=== PATIENT | female | born 1935 | race Asian ===

== ENCOUNTER 2023-03-23 19:35 | Inpatient (IN) | payer MEDICARE, OTHER ==
[~2023-03-23] VITALS: Ht 167.6 cm; Wt 68.5 kg
[2023-03-23 21:38] LABS: APPEARANCE,URINE CLEAR (CLEAR); BILIRUBIN,URINE NEGATIVE (NEGATIVE); BLOOD, URINE TRACE-INTA Ery/uL (NEGATIVE); COLOR,URINE YELLOW (YELLOW); KETONES,URINE NEGATIVE (NEGATIVE); LEUKOCYTE ESTERASE ,URINE NEGATIVE (NEGATIVE); NITRITE, URINE NEGATIVE (NEGATIVE); PH,URINE 5.5 (5.0-8.0); PROTEIN,URINE NEGATIVE (NEGATIVE); UGLUCOSE NEGATIVE (NEGATIVE); UROBILINOGEN,URINE 0.2 EU/dL (0.2)
[2023-03-23 21:46] LABS: ADD URINE CULTURE NO; BACTERIA,URINE None seen /HPF (None Seen); SQUAMOUS EPITHELIAL CELL,UR 0-2 /HPF (None Seen); WBC,URINE 0-2 /HPF (0-3)
[2023-03-23 21:49] LABS: BASOPHILS % (AUTO) 0.6 % (0.0-2.0); EOSINOPHILS # (AUTO) 0.4 K/uL (0.0-0.7); EOSINOPHILS % (AUTO) 5.9 % (0.0-6.0); HEMATOCRIT 40 % (33-45); HEMOGLOBIN 13.1 g/dL (11.5-14.8); LYMPHOCYTES # (AUTO) 1.6 K/uL (0.8-4.8); LYMPHOCYTES % (AUTO) 24.6 % (20.0-44.0); MEAN CORPUSCULAR HEMOGLOBIN 32 PG (26.0-33.0); MEAN CORPUSCULAR HGB CONC 33 g/dl (31.0-36.0); MEAN CORPUSCULAR VOLUME 97 fL (82-100); MONOCYTES # (AUTO) 0.7 K/uL (0.1-1.30); MONOCYTES % (AUTO) 10.4 % (2.0-12.0); NEUTROPHILS # (AUTO) 3.8 K/uL (1.8-8.9); NEUTROPHILS % (AUTO) 58.5 % (43.0-81.0); PLATELET COUNT (AUTO) 294 K/uL (150-450); RED BLOOD CELL COUNT(AUTO) 4.12 MIL/uL (4.0-5.2); RED CELL DISTRIBUTION WIDTH 13.6 % (11.5-15.0); WHITE BLOOD COUNT (AUTO) 6.5 K/uL (4.3-11.0)
[2023-03-23 22:11] LABS: AMPHETAMINE, URINE NEGATIVE (NEGATIVE); BARBITURATE, URINE NEGATIVE (NEGATIVE); BENZODIAZEPINE, URINE NEGATIVE (NEGATIVE); CANNABINOID, URINE NEGATIVE (NEGATIVE); COCCAINE, URINE NEGATIVE (NEGATIVE); OPIATE, URINE NEGATIVE (NEGATIVE); PHENCYCLIDINE SCREEN,URINE NEGATIVE (NEGATIVE)
[2023-03-23 22:15] LABS: ALANINE AMINOTRANSFERASE 21 U/L (12-78); ALBUMIN 3.5 g/dL (3.4-5.0); ALCOHOL, BLOOD < 3 mg/dL (0-10); ALKALINE PHOSPHATASE 84 U/L (46-116); ASPARTATE AMINOTRANSFERASE 23 U/L (15-37); BILIRUBIN,DIRECT 0.1 mg/dL (0.0-0.2); BILIRUBIN,TOTAL 0.6 mg/dL (0.2-1.0); CALCIUM, SERUM 9.5 mg/dL (8.5-10.1); CARBON DIOXIDE 25 mmol/L (21-32); CHLORIDE 107 mmol/L (98-107); GLUCOSE 84 mg/dL (74-106); POTASSIUM 4.2 mmol/L (3.5-5.1); SODIUM SERUM 139 mmol/L (136-145); TOTAL PROTEIN, SERUM 7.8 g/dL (6.4-8.2); UREA NITROGEN, BLOOD 20 mg/dL (7-18)
[2023-03-23 22:16] LABS: ACETAMINOPHEN <10 ug/ml (10-30); SALICYLATE 0.7 mg/dL (2.8-20.0)
[2023-03-23] MEDS ORDERED: OLANZAPINE 5 MG TABLET ONE (23:10)
[2023-03-23] MEDS ORDERED: OLANZAPINE 5 MG TABLET PO ONE (23:30)
[2023-03-23] MEDS ORDERED: OLANZAPINE 10 MG VIAL IM ONE (23:30)
[2023-03-24] MEDS ORDERED: MIRT45TA83 PO (01:07)
[2023-03-24] MEDS ORDERED: HYDR25CA PO (01:08)
[2023-03-24] MEDS ORDERED: BUDE10.2 PO (01:10)
[2023-03-24] MEDS ORDERED: [UNRECOGNIZED DRUG - CODE] PO (01:12)
[2023-03-24] MEDS ORDERED: FLUT16SP BNOSTRILS (01:13)
[2023-03-24] MEDS ORDERED: DICL100G34 TP (01:14)
[2023-03-24] MEDS ORDERED: PROP1DRO4 OP (01:16)
[2023-03-24] MEDS ORDERED: FERR325T23 PO (01:17)
[2023-03-24] MEDS ORDERED: FOLI5VIA2 PO (01:19)
[2023-03-24] MEDS ORDERED: MULT-754 PO (01:19)
[2023-03-24] MEDS ORDERED: THIA100T70 PO (01:20)
[2023-03-24] MEDS ORDERED: CHOL200013 PO (01:22)
[2023-03-24] MEDS ORDERED: DOCU100C36 PO (01:23)
[2023-03-24] MEDS ORDERED: LEVO137T2 PO (01:24)
[2023-03-24] MEDS ORDERED: PANT40TA49 PO (01:26)
[2023-03-24] MEDS ORDERED: GABA600T12 PO (01:26)
[2023-03-24] MEDS ORDERED: DULO60CA64 PO (01:27)
[2023-03-24] MEDS ORDERED: ALBU8.5H8 INH (01:29)
[2023-03-24] MEDS ORDERED: ALBUTEROL FS 2.5 MG/3 ML VIAL.NEB IH PRN (02:00)
[2023-03-24] MEDS ORDERED: MAGNESIUM HYDROXIDE 30 ML UDC PO PRN (03:30)
[2023-03-24] MEDS ORDERED: BLOOD SUGAR DIAGNOSTIC 1 EACH STRIP IN ONE (03:30)
[2023-03-24] MEDS ORDERED: TEMAZEPAM 7.5 MG CAPSULE PO PRN (03:30)
[2023-03-24] MEDS ORDERED: MAG HYDROX/AL HYDROX/SIMETH 30 ML UDC PO PRN (03:30)
[2023-03-24] MEDS: BUDESONIDE RESPULE INH 0.5 MG/2 ML AMPUL.NEB IH SCH ×2 (07:05→15:00)
[2023-03-24] MEDS: ALBUTEROL FS 2.5 MG/3 ML VIAL.NEB NEB SCH ×3 (07:35→19:30)
[2023-03-24 08:00] VITALS: BP 133/77; TEMP 97.6; O2SAT 93
[2023-03-24] MEDS: PANTOPRAZOLE 40 MG TABLET.DR PO SCH (08:46)
[2023-03-24] MEDS: GABAPENTIN 300 MG CAPSULE PO SCH ×3 (08:46→17:00)
[2023-03-24] MEDS: CHOLECALCIFEROL 1,000 UNIT TABLET (VIT D3) PO SCH (08:46)
[2023-03-24] MEDS: CALCIUM CARB 600MG /VIT D 1 EACH TABLET PO SCH ×2 (08:46→17:00)
[2023-03-24] MEDS: MULTIVITAMINS,THERAGRAN 1 UDTAB TABLET PO SCH (08:46)
[2023-03-24] MEDS: THIAMINE HCL 100 MG TABLET PO SCH (08:46)
[2023-03-24] MEDS: FERROUS SULFATE (325 MG) 325 MG/TAB TABLET PO SCH ×2 (08:46→17:00)
[2023-03-24] MEDS: POLYVINYL ALCOHOL 15 ML BOTTLE OP SCH ×2 (08:48→17:00)
[2023-03-24] MEDS: FLUTICASONE PROPIONATE 16 GM BOTTLE NS SCH ×2 (08:48→21:00)
[2023-03-24] MEDS: LEVOTHYROXINE SODIUM 137 MCG TABLET PO SCH (08:49)
[2023-03-24] MEDS ORDERED: DICLOFENAC TOPICAL 100 GM TUBE TP SCH (09:00)
[2023-03-24] MEDS: DULOXETINE HCL 30 MG CAPSULE.DR PO SCH (11:30)
[2023-03-24] MEDS: DIVALPROEX SODIUM 125 MG TABLET.DR PO SCH ×2 (13:00→17:00)
[2023-03-24 16:00] VITALS: BP 133/87; TEMP 97.9; O2SAT 94
[2023-03-24 20:00] VITALS: BP 112/97; TEMP 97.9; O2SAT 95
[2023-03-25] MEDS: BUDESONIDE RESPULE INH 0.5 MG/2 ML AMPUL.NEB IH SCH ×2 (07:05→15:00)
[2023-03-25] MEDS: PANTOPRAZOLE 40 MG TABLET.DR PO SCH (07:30)
[2023-03-25] MEDS: ALBUTEROL FS 2.5 MG/3 ML VIAL.NEB NEB SCH ×3 (07:35→22:45)
[2023-03-25 08:00] VITALS: BP 146/63; TEMP 97.8; O2SAT 96
[2023-03-25] MEDS: GABAPENTIN 300 MG CAPSULE PO SCH ×3 (08:34→17:13)
[2023-03-25] MEDS: FERROUS SULFATE (325 MG) 325 MG/TAB TABLET PO SCH ×2 (08:34→17:14)
[2023-03-25] MEDS: DIVALPROEX SODIUM 125 MG TABLET.DR PO SCH ×3 (08:34→17:14)
[2023-03-25] MEDS: DULOXETINE HCL 30 MG CAPSULE.DR PO SCH (08:34)
[2023-03-25] MEDS: CALCIUM CARB 600MG /VIT D 1 EACH TABLET PO SCH ×2 (08:35→17:14)
[2023-03-25] MEDS: LEVOTHYROXINE SODIUM 137 MCG TABLET PO SCH (08:35)
[2023-03-25] MEDS: THIAMINE HCL 100 MG TABLET PO SCH (09:00)
[2023-03-25] MEDS: MULTIVITAMINS,THERAGRAN 1 UDTAB TABLET PO SCH (09:00)
[2023-03-25] MEDS: CHOLECALCIFEROL 1,000 UNIT TABLET (VIT D3) PO SCH (09:00)
[2023-03-25] MEDS: POLYVINYL ALCOHOL 15 ML BOTTLE OP SCH ×2 (12:02→17:13)
[2023-03-25] MEDS: FLUTICASONE PROPIONATE 16 GM BOTTLE NS SCH ×2 (12:02→21:03)
[2023-03-25 16:00] VITALS: BP 137/69; TEMP 98.6; O2SAT 95
[2023-03-25] MEDS: ACETAMINOPHEN 325 MG TABLET PO PRN (17:13)
[2023-03-25] MEDS: IBUPROFEN 400 MG TABLET PO SCH (18:35)
[2023-03-25 20:00] VITALS: BP 140/72; TEMP 98.1; O2SAT 97
[2023-03-25 20:40] VITALS: O2SAT 95
[2023-03-25 20:52] VITALS: O2SAT 99
[2023-03-26] VITALS (9 sets, daily range): BP systolic 113–145; BP diastolic 56–64; TEMP 97.7–97.9; O2SAT 95–100
[2023-03-26] MEDS: IBUPROFEN 400 MG TABLET PO SCH ×4 (01:52→17:37)
[2023-03-26] MEDS: ALBUTEROL FS 2.5 MG/3 ML VIAL.NEB NEB SCH ×4 (02:38→20:05)
[2023-03-26] MEDS: PANTOPRAZOLE 40 MG TABLET.DR PO SCH (07:52)
[2023-03-26] MEDS: LEVOTHYROXINE SODIUM 137 MCG TABLET PO SCH (07:52)
[2023-03-26] MEDS: BUDESONIDE RESPULE INH 0.5 MG/2 ML AMPUL.NEB IH SCH ×2 (08:15→15:00)
[2023-03-26] MEDS: DIVALPROEX SODIUM 125 MG TABLET.DR PO SCH ×3 (08:35→17:08)
[2023-03-26] MEDS: CALCIUM CARB 600MG /VIT D 1 EACH TABLET PO SCH ×2 (08:36→17:08)
[2023-03-26] MEDS: FERROUS SULFATE (325 MG) 325 MG/TAB TABLET PO SCH ×4 (08:36→17:08)
[2023-03-26] MEDS: DULOXETINE HCL 30 MG CAPSULE.DR PO SCH (08:36)
[2023-03-26] MEDS: MULTIVITAMINS,THERAGRAN 1 UDTAB TABLET PO SCH (08:36)
[2023-03-26] MEDS: CHOLECALCIFEROL 1,000 UNIT TABLET (VIT D3) PO SCH (08:36)
[2023-03-26] MEDS: GABAPENTIN 300 MG CAPSULE PO SCH ×3 (08:36→17:08)
[2023-03-26] MEDS: THIAMINE HCL 100 MG TABLET PO SCH (08:37)
[2023-03-26] MEDS: FLUTICASONE PROPIONATE 16 GM BOTTLE NS SCH ×2 (08:40→21:11)
[2023-03-26] MEDS: POLYVINYL ALCOHOL 15 ML BOTTLE OP SCH ×2 (08:41→17:09)
[2023-03-27] MEDS: IBUPROFEN 400 MG TABLET PO SCH ×4 (01:24→17:44)
[2023-03-27] MEDS: ALBUTEROL FS 2.5 MG/3 ML VIAL.NEB NEB SCH ×4 (01:30→20:45)
[2023-03-27] MEDS: LEVOTHYROXINE SODIUM 137 MCG TABLET PO SCH (07:53)
[2023-03-27] MEDS: PANTOPRAZOLE 40 MG TABLET.DR PO SCH (07:54)
[2023-03-27 08:00] VITALS: BP 136/73; TEMP 98.6; O2SAT 96
[2023-03-27] MEDS: GABAPENTIN 300 MG CAPSULE PO SCH ×3 (08:01→17:03)
[2023-03-27] MEDS: CALCIUM CARB 600MG /VIT D 1 EACH TABLET PO SCH ×2 (08:01→17:03)
[2023-03-27] MEDS: DIVALPROEX SODIUM 125 MG TABLET.DR PO SCH ×3 (08:01→17:03)
[2023-03-27] MEDS: DULOXETINE HCL 30 MG CAPSULE.DR PO SCH (08:01)
[2023-03-27] MEDS: FERROUS SULFATE (325 MG) 325 MG/TAB TABLET PO SCH ×2 (08:01→16:40)
[2023-03-27] MEDS: CHOLECALCIFEROL 1,000 UNIT TABLET (VIT D3) PO SCH (08:01)
[2023-03-27 08:20] VITALS: O2SAT 97
[2023-03-27 08:30] VITALS: O2SAT 99
[2023-03-27] MEDS: BUDESONIDE RESPULE INH 0.5 MG/2 ML AMPUL.NEB IH SCH ×2 (08:38→14:36)
[2023-03-27] MEDS: MULTIVITAMINS,THERAGRAN 1 UDTAB TABLET PO SCH (08:52)
[2023-03-27] MEDS: ACETAMINOPHEN 325 MG TABLET PO PRN ×2 (08:52→15:25)
[2023-03-27] MEDS: THIAMINE HCL 100 MG TABLET PO SCH (08:53)
[2023-03-27] MEDS: POLYVINYL ALCOHOL 15 ML BOTTLE OP SCH ×2 (08:54→17:03)
[2023-03-27] MEDS: FLUTICASONE PROPIONATE 16 GM BOTTLE NS SCH ×2 (08:54→21:17)
[2023-03-27] MEDS: MINERAL OIL/PETROL OINT 396 GM JAR TP SCH (08:55)
[2023-03-27] MEDS: LORAZEPAM 0.5 MG TABLET PO PRN (13:55)
[2023-03-27 16:00] VITALS: BP 143/63; TEMP 98.4; O2SAT 95
[2023-03-27 20:06] VITALS: BP 140/66; TEMP 98; O2SAT 97
[2023-03-28] VITALS (7 sets, daily range): BP systolic 132–145; BP diastolic 61–72; TEMP 97.8–97.9; O2SAT 94–99
[2023-03-28] MEDS: IBUPROFEN 400 MG TABLET PO SCH ×4 (00:27→17:43)
[2023-03-28] MEDS: ALBUTEROL FS 2.5 MG/3 ML VIAL.NEB NEB SCH ×4 (01:30→21:39)
[2023-03-28] MEDS: BUDESONIDE RESPULE INH 0.5 MG/2 ML AMPUL.NEB IH SCH ×2 (08:38→14:10)
[2023-03-28] MEDS: CHOLECALCIFEROL 1,000 UNIT TABLET (VIT D3) PO SCH (09:07)
[2023-03-28] MEDS: PANTOPRAZOLE 40 MG TABLET.DR PO SCH (09:07)
[2023-03-28] MEDS: MULTIVITAMINS,THERAGRAN 1 UDTAB TABLET PO SCH (09:07)
[2023-03-28] MEDS: CALCIUM CARB 600MG /VIT D 1 EACH TABLET PO SCH ×2 (09:07→16:23)
[2023-03-28] MEDS: THIAMINE HCL 100 MG TABLET PO SCH (09:07)
[2023-03-28] MEDS: GABAPENTIN 300 MG CAPSULE PO SCH ×3 (09:07→16:23)
[2023-03-28] MEDS: FLUTICASONE PROPIONATE 16 GM BOTTLE NS SCH ×2 (09:08→21:17)
[2023-03-28] MEDS: LORAZEPAM 0.5 MG TABLET PO PRN (09:08)
[2023-03-28] MEDS: POLYVINYL ALCOHOL 15 ML BOTTLE OP SCH ×2 (09:08→16:24)
[2023-03-28] MEDS: DIVALPROEX SODIUM 125 MG TABLET.DR PO SCH ×3 (09:08→16:23)
[2023-03-28] MEDS: LEVOTHYROXINE SODIUM 137 MCG TABLET PO SCH (09:08)
[2023-03-28] MEDS: FERROUS SULFATE (325 MG) 325 MG/TAB TABLET PO SCH ×2 (09:08→16:23)
[2023-03-28] MEDS: MINERAL OIL/PETROL OINT 396 GM JAR TP SCH (09:09)
[2023-03-28] MEDS: DULOXETINE HCL 20 MG CAPSULE.DR PO SCH (09:09)
[2023-03-28] MEDS: ACETAMINOPHEN 325 MG TABLET PO PRN ×2 (09:13→21:09)
[2023-03-28] MEDS: DOCUSATE SODIUM 100 MG CAPSULE PO PRN (16:23)
[2023-03-29] VITALS (8 sets, daily range): BP systolic 116–127; BP diastolic 59–62; TEMP 97.9–98.6; O2SAT 96–100
[2023-03-29] MEDS: IBUPROFEN 400 MG TABLET PO SCH ×4 (00:44→18:38)
[2023-03-29] MEDS: ALBUTEROL FS 2.5 MG/3 ML VIAL.NEB NEB SCH ×4 (01:30→20:25)
[2023-03-29] MEDS: BUDESONIDE RESPULE INH 0.5 MG/2 ML AMPUL.NEB IH SCH ×2 (08:30→14:08)
[2023-03-29] MEDS: GABAPENTIN 300 MG CAPSULE PO SCH ×4 (08:37→17:17)
[2023-03-29] MEDS: THIAMINE HCL 100 MG TABLET PO SCH (08:38)
[2023-03-29] MEDS: FERROUS SULFATE (325 MG) 325 MG/TAB TABLET PO SCH ×2 (08:38→17:18)
[2023-03-29] MEDS: DOCUSATE SODIUM 100 MG CAPSULE PO PRN (08:38)
[2023-03-29] MEDS: CHOLECALCIFEROL 1,000 UNIT TABLET (VIT D3) PO SCH (08:38)
[2023-03-29] MEDS: CALCIUM CARB 600MG /VIT D 1 EACH TABLET PO SCH ×2 (08:38→17:18)
[2023-03-29] MEDS: MULTIVITAMINS,THERAGRAN 1 UDTAB TABLET PO SCH (08:38)
[2023-03-29] MEDS: PANTOPRAZOLE 40 MG TABLET.DR PO SCH (08:38)
[2023-03-29] MEDS: FLUTICASONE PROPIONATE 16 GM BOTTLE NS SCH ×2 (08:41→20:33)
[2023-03-29] MEDS: POLYVINYL ALCOHOL 15 ML BOTTLE OP SCH ×2 (08:42→17:17)
[2023-03-29] MEDS: LEVOTHYROXINE SODIUM 137 MCG TABLET PO SCH (08:46)
[2023-03-29] MEDS: DIVALPROEX SODIUM 125 MG TABLET.DR PO SCH ×4 (08:47→17:19)
[2023-03-29] MEDS: DULOXETINE HCL 20 MG CAPSULE.DR PO SCH (08:47)
[2023-03-29] MEDS: MINERAL OIL/PETROL OINT 396 GM JAR TP SCH (08:48)
[2023-03-29] MEDS: ACETAMINOPHEN 325 MG TABLET PO PRN (09:07)
[2023-03-29] MEDS: LIDOCAINE 5% (PATCH) 1 EA PATCH TP SCH (11:30)
[2023-03-30] MEDS: IBUPROFEN 400 MG TABLET PO SCH ×5 (00:36→23:41)
[2023-03-30] MEDS: ALBUTEROL FS 2.5 MG/3 ML VIAL.NEB NEB SCH ×4 (01:30→20:53)
[2023-03-30] MEDS: BUDESONIDE RESPULE INH 0.5 MG/2 ML AMPUL.NEB IH SCH ×2 (07:05→14:17)
[2023-03-30 08:00] VITALS: BP 151/66; TEMP 97.6; O2SAT 98
[2023-03-30] MEDS: CHOLECALCIFEROL 1,000 UNIT TABLET (VIT D3) PO SCH (08:35)
[2023-03-30] MEDS: LEVOTHYROXINE SODIUM 137 MCG TABLET PO SCH (08:35)
[2023-03-30] MEDS: DIVALPROEX SODIUM 125 MG TABLET.DR PO SCH ×3 (08:36→17:22)
[2023-03-30] MEDS: DULOXETINE HCL 20 MG CAPSULE.DR PO SCH (08:37)
[2023-03-30] MEDS: PANTOPRAZOLE 40 MG TABLET.DR PO SCH (08:38)
[2023-03-30] MEDS: GABAPENTIN 300 MG CAPSULE PO SCH ×3 (08:38→17:21)
[2023-03-30] MEDS: THIAMINE HCL 100 MG TABLET PO SCH (08:39)
[2023-03-30] MEDS: ACETAMINOPHEN 325 MG TABLET PO PRN (08:40)
[2023-03-30] MEDS: CALCIUM CARB 600MG /VIT D 1 EACH TABLET PO SCH ×2 (08:41→17:22)
[2023-03-30] MEDS: POLYVINYL ALCOHOL 15 ML BOTTLE OP SCH ×2 (08:41→17:21)
[2023-03-30] MEDS: MULTIVITAMINS,THERAGRAN 1 UDTAB TABLET PO SCH (08:41)
[2023-03-30] MEDS: FERROUS SULFATE (325 MG) 325 MG/TAB TABLET PO SCH ×2 (08:41→17:22)
[2023-03-30] MEDS: MINERAL OIL/PETROL OINT 396 GM JAR TP SCH (08:42)
[2023-03-30] MEDS: FLUTICASONE PROPIONATE 16 GM BOTTLE NS SCH ×2 (08:44→21:33)
[2023-03-30] MEDS: LIDOCAINE 5% (PATCH) 1 EA PATCH TP SCH (12:47)
[2023-03-30 15:12] LABS: BASOPHILS # (AUTO) 0.1 K/uL (0.0-0.2); BASOPHILS % (AUTO) 0.8 % (0.0-2.0); EOSINOPHILS # (AUTO) 0.5 K/uL (0.0-0.7); EOSINOPHILS % (AUTO) 7.5 % (0.0-6.0); HEMATOCRIT 39 % (33-45); HEMOGLOBIN 12.9 g/dL (11.5-14.8); LYMPHOCYTES # (AUTO) 1.8 K/uL (0.8-4.8); LYMPHOCYTES % (AUTO) 26.5 % (20.0-44.0); MEAN CORPUSCULAR HEMOGLOBIN 32 PG (26.0-33.0); MEAN CORPUSCULAR HGB CONC 33 g/dl (31.0-36.0); MEAN CORPUSCULAR VOLUME 97 fL (82-100); MONOCYTES # (AUTO) 0.6 K/uL (0.1-1.30); MONOCYTES % (AUTO) 9.6 % (2.0-12.0); NEUTROPHILS # (AUTO) 3.7 K/uL (1.8-8.9); NEUTROPHILS % (AUTO) 55.6 % (43.0-81.0); PLATELET COUNT (AUTO) 240 K/uL (150-450); RED BLOOD CELL COUNT(AUTO) 4.07 MIL/uL (4.0-5.2); RED CELL DISTRIBUTION WIDTH 13.5 % (11.5-15.0); WHITE BLOOD COUNT (AUTO) 6.7 K/uL (4.3-11.0)
[2023-03-30 15:31] LABS: ALBUMIN 3.5 g/dL (3.4-5.0); BILIRUBIN,TOTAL 0.4 mg/dL (0.2-1.0); CALCIUM, SERUM 9.5 mg/dL (8.5-10.1); CREATININE 1.1 mg/dL (0.6-1.3); POTASSIUM 4.6 mmol/L (3.5-5.1); TOTAL PROTEIN, SERUM 7.8 g/dL (6.4-8.2)
[2023-03-30 16:00] VITALS: BP 147/66; TEMP 97.9; O2SAT 96
[2023-03-30 20:53] VITALS: O2SAT 97
[2023-03-30 21:06] VITALS: O2SAT 100
[2023-03-31] MEDS: LORAZEPAM 0.5 MG TABLET PO PRN (01:13)
[2023-03-31] MEDS: ALBUTEROL FS 2.5 MG/3 ML VIAL.NEB NEB SCH ×2 (01:30→07:35)
[2023-03-31] MEDS: IBUPROFEN 400 MG TABLET PO SCH ×3 (06:33→18:45)
[2023-03-31] MEDS: BUDESONIDE RESPULE INH 0.5 MG/2 ML AMPUL.NEB IH SCH ×2 (07:05→15:00)
[2023-03-31 08:00] VITALS: BP 134/79; TEMP 97.7; O2SAT 94
[2023-03-31] MEDS: THIAMINE HCL 100 MG TABLET PO SCH (08:10)
[2023-03-31] MEDS: DIVALPROEX SODIUM 125 MG TABLET.DR PO SCH ×3 (08:10→16:10)
[2023-03-31] MEDS: CHOLECALCIFEROL 1,000 UNIT TABLET (VIT D3) PO SCH (08:11)
[2023-03-31] MEDS: CALCIUM CARB 600MG /VIT D 1 EACH TABLET PO SCH ×2 (08:11→16:10)
[2023-03-31] MEDS: MULTIVITAMINS,THERAGRAN 1 UDTAB TABLET PO SCH (08:11)
[2023-03-31] MEDS: LEVOTHYROXINE SODIUM 137 MCG TABLET PO SCH (08:11)
[2023-03-31] MEDS: PANTOPRAZOLE 40 MG TABLET.DR PO SCH (08:11)
[2023-03-31] MEDS: FERROUS SULFATE (325 MG) 325 MG/TAB TABLET PO SCH ×2 (08:11→16:10)
[2023-03-31] MEDS: GABAPENTIN 300 MG CAPSULE PO SCH ×3 (08:11→16:10)
[2023-03-31] MEDS: DULOXETINE HCL 20 MG CAPSULE.DR PO SCH (08:13)
[2023-03-31] MEDS: FLUTICASONE PROPIONATE 16 GM BOTTLE NS SCH ×2 (08:33→21:15)
[2023-03-31] MEDS: POLYVINYL ALCOHOL 15 ML BOTTLE OP SCH ×2 (08:33→16:11)
[2023-03-31] MEDS: MINERAL OIL/PETROL OINT 396 GM JAR TP SCH (09:32)
[2023-03-31] MEDS: LIDOCAINE 5% (PATCH) 1 EA PATCH TP SCH (11:48)
[2023-03-31 16:00] VITALS: BP 128/71; TEMP 98.2; O2SAT 94
[2023-03-31 20:00] VITALS: BP 110/77; TEMP 98.4; O2SAT 97
[2023-04-01] MEDS: IBUPROFEN 400 MG TABLET PO SCH ×4 (00:25→18:44)
[2023-04-01 08:00] VITALS: BP 155/63; TEMP 97.4; O2SAT 98
[2023-04-01] MEDS: PANTOPRAZOLE 40 MG TABLET.DR PO SCH (08:03)
[2023-04-01] MEDS: LEVOTHYROXINE SODIUM 137 MCG TABLET PO SCH (08:03)
[2023-04-01 08:25] VITALS: O2SAT 95
[2023-04-01 08:35] VITALS: O2SAT 99
[2023-04-01] MEDS: BUDESONIDE RESPULE INH 0.5 MG/2 ML AMPUL.NEB IH SCH ×2 (08:39→17:18)
[2023-04-01] MEDS: GABAPENTIN 300 MG CAPSULE PO SCH ×3 (08:54→16:21)
[2023-04-01] MEDS: DIVALPROEX SODIUM 125 MG TABLET.DR PO SCH ×3 (08:54→16:21)
[2023-04-01] MEDS: CHOLECALCIFEROL 1,000 UNIT TABLET (VIT D3) PO SCH (08:54)
[2023-04-01] MEDS: MULTIVITAMINS,THERAGRAN 1 UDTAB TABLET PO SCH (08:54)
[2023-04-01] MEDS: CALCIUM CARB 600MG /VIT D 1 EACH TABLET PO SCH ×2 (08:54→16:21)
[2023-04-01] MEDS: THIAMINE HCL 100 MG TABLET PO SCH (08:54)
[2023-04-01] MEDS: FERROUS SULFATE (325 MG) 325 MG/TAB TABLET PO SCH ×2 (08:54→16:21)
[2023-04-01] MEDS: DULOXETINE HCL 20 MG CAPSULE.DR PO SCH (08:55)
[2023-04-01] MEDS: FLUTICASONE PROPIONATE 16 GM BOTTLE NS SCH ×2 (08:55→21:17)
[2023-04-01] MEDS: POLYVINYL ALCOHOL 15 ML BOTTLE OP SCH ×2 (08:55→16:22)
[2023-04-01] MEDS: LIDOCAINE 5% (PATCH) 1 EA PATCH TP SCH (11:14)
[2023-04-01] MEDS: MINERAL OIL/PETROL OINT 396 GM JAR TP SCH (11:16)
[2023-04-01 15:45] VITALS: O2SAT 97
[2023-04-01 20:00] VITALS: BP 157/68; TEMP 97.6; O2SAT 99
[2023-04-02] MEDS: IBUPROFEN 400 MG TABLET PO SCH ×4 (00:30→17:59)
[2023-04-02] MEDS: BUDESONIDE RESPULE INH 0.5 MG/2 ML AMPUL.NEB IH SCH ×2 (07:05→15:00)
[2023-04-02 08:00] VITALS: BP 119/86; TEMP 97.9; O2SAT 94
[2023-04-02] MEDS: THIAMINE HCL 100 MG TABLET PO SCH (08:42)
[2023-04-02] MEDS: GABAPENTIN 300 MG CAPSULE PO SCH ×3 (08:42→16:06)
[2023-04-02] MEDS: FERROUS SULFATE (325 MG) 325 MG/TAB TABLET PO SCH ×3 (08:42→16:06)
[2023-04-02] MEDS: LEVOTHYROXINE SODIUM 137 MCG TABLET PO SCH (08:43)
[2023-04-02] MEDS: MULTIVITAMINS,THERAGRAN 1 UDTAB TABLET PO SCH (08:43)
[2023-04-02] MEDS: PANTOPRAZOLE 40 MG TABLET.DR PO SCH (08:43)
[2023-04-02] MEDS: CALCIUM CARB 600MG /VIT D 1 EACH TABLET PO SCH ×2 (08:43→16:06)
[2023-04-02] MEDS: CHOLECALCIFEROL 1,000 UNIT TABLET (VIT D3) PO SCH (08:43)
[2023-04-02] MEDS: DIVALPROEX SODIUM 125 MG TABLET.DR PO SCH ×3 (08:43→16:06)
[2023-04-02] MEDS: FLUTICASONE PROPIONATE 16 GM BOTTLE NS SCH ×2 (08:45→20:29)
[2023-04-02] MEDS: DULOXETINE HCL 20 MG CAPSULE.DR PO SCH (08:45)
[2023-04-02] MEDS: POLYVINYL ALCOHOL 15 ML BOTTLE OP SCH ×2 (08:45→16:06)
[2023-04-02] MEDS: MINERAL OIL/PETROL OINT 396 GM JAR TP SCH (11:17)
[2023-04-02] MEDS: LIDOCAINE 5% (PATCH) 1 EA PATCH TP SCH (11:18)
[2023-04-02 16:00] VITALS: BP 127/58; TEMP 97.6; O2SAT 97
[2023-04-02 21:08] VITALS: BP 147/74; TEMP 97.8; O2SAT 96
[2023-04-03] MEDS: IBUPROFEN 400 MG TABLET PO SCH ×3 (00:55→12:30)
[2023-04-03] MEDS: BUDESONIDE RESPULE INH 0.5 MG/2 ML AMPUL.NEB IH SCH ×2 (07:05→08:31)
[2023-04-03] MEDS: PANTOPRAZOLE 40 MG TABLET.DR PO SCH (07:55)
[2023-04-03] MEDS: LEVOTHYROXINE SODIUM 137 MCG TABLET PO SCH (07:55)
[2023-04-03 08:00] VITALS: BP 132/65; TEMP 98.7; O2SAT 94
[2023-04-03 08:18] VITALS: O2SAT 96
[2023-04-03] MEDS: LIDOCAINE 5% (PATCH) 1 EA PATCH TP SCH (08:27)
[2023-04-03] MEDS: MULTIVITAMINS,THERAGRAN 1 UDTAB TABLET PO SCH ×2 (08:27→09:00)
[2023-04-03] MEDS: GABAPENTIN 300 MG CAPSULE PO SCH ×2 (08:28→13:00)
[2023-04-03] MEDS: FERROUS SULFATE (325 MG) 325 MG/TAB TABLET PO SCH ×2 (08:28→09:00)
[2023-04-03] MEDS: DIVALPROEX SODIUM 125 MG TABLET.DR PO SCH ×2 (08:28→13:00)
[2023-04-03] MEDS: CALCIUM CARB 600MG /VIT D 1 EACH TABLET PO SCH ×2 (08:28→09:00)
[2023-04-03] MEDS: CHOLECALCIFEROL 1,000 UNIT TABLET (VIT D3) PO SCH ×2 (08:29→09:00)
[2023-04-03] MEDS: MINERAL OIL/PETROL OINT 396 GM JAR TP SCH (08:29)
[2023-04-03 08:32] VITALS: O2SAT 100
[2023-04-03] MEDS: POLYVINYL ALCOHOL 15 ML BOTTLE OP SCH (09:00)
[2023-04-03] MEDS: DULOXETINE HCL 20 MG CAPSULE.DR PO SCH (09:00)
[2023-04-03] MEDS: FLUTICASONE PROPIONATE 16 GM BOTTLE NS SCH (09:00)
[2023-04-03] MEDS: THIAMINE HCL 100 MG TABLET PO SCH (09:00)
== END 2023-04-03 13:45 | DRG 885 ==
LOC: ER 19:45 → GPS 03-24 01:31
PROVIDERS: ADMIT Psychiatry & Neurology Psychosomatic Medicine; ATTEND Nurse Practitioner Acute Care
DX: F39 Unspecified mood [affective] disorder (principal); R45.851 Suicidal ideations; K21.9 Gastro-esophageal reflux disease without esophagitis; G89.4 Chronic pain syndrome; E03.9 Hypothyroidism, unspecified; E16.2 Hypoglycemia, unspecified; F10.10 Alcohol abuse, uncomplicated; F31.9 Bipolar disorder, unspecified; F41.9 Anxiety disorder, unspecified; G62.9 Polyneuropathy, unspecified; L60.1 Onycholysis; L60.3 Nail dystrophy; L85.3 Xerosis cutis; Z20.822 Contact with and (suspected) exposure to COVID-19; J44.9 Chronic obstructive pulmonary disease, unspecified; F60.9 Personality disorder, unspecified
CPT/HCPCS: 36415; 80048-TC; 80053-TC; 80076-TC; 80164-TC; 81001; 82962-TC; 85025-TC; 87081-TC; 93970-TC; 94799-TC; 97110-TC; 97530-TC; G0480